=== PATIENT | male | born 1990 | race Caucasian/White ===

== ENCOUNTER 2017-01-02 12:17 | Emergency (ER) | payer OTHER ==
[~2017-01-02] VITALS: Ht 170.2 cm; Wt 90.9 kg
[2017-01-02] MEDS ORDERED: QUET200XR PO (12:24)
[2017-01-02 13:30] VITALS: BP 135/86
== END 2017-01-02 13:38 | disposition home or self-care (01) ==
LOC: EDUNIT# 12:17 → EMS 12:19
DX: Z76.0 Encounter for issue of repeat prescription (principal); R03.0 Elevated blood-pressure reading, without diagnosis of hypertension; E11.9 Type 2 diabetes mellitus without complications
CPT/HCPCS: 99283

== ENCOUNTER 2017-04-12 14:03 | Emergency (ER) | payer OTHER ==
[~2017-04-12] VITALS: Ht 170.2 cm; Wt 98.6 kg
[~2017-04-12 14:03] MED LIST: QUET200XR PO
[2017-04-12 16:36] VITALS: BP 141/77
== END 2017-04-12 16:51 | disposition home or self-care (01) ==
LOC: EMS 14:05
DX: F20.9 Schizophrenia, unspecified (principal)
CPT/HCPCS: 99283